=== PATIENT | female | born 1940 | race Caucasian/White ===

== ENCOUNTER 2016-08-31 12:43 | Emergency (ER) | payer MEDICARE, OTHER ==
[2016-08-31 13:05] LABS: BASOPHIL# 0.1 X 10^3uL (0.0-0.1); BASOPHILS 0.8 % (0.0-2.0); EOSINOPHILS 1.5 % (0.0-6.0); EOSINOPHILS# 0.2 X 10^3uL (0.0-0.4); HEMATOCRIT 41.5 % (36.0-48.0); HEMOGLOBIN 14.7 g/dL (12.0-16.0); LYMPHOCYTES# 3.6 X 10^3uL (0.8-3.8); MEAN CELL VOLUME 89.4 fL (80.0-100.0); MEAN CORPUS. HGB CONCENTRATION 35.5 g/dL (32.0-36.0); MEAN CORPUSCULAR HEMOGLOBIN 31.7 pg (29.0-35.0); MEAN PLATELET VOLUME 7.5 fL (7.4-10.4); MONOCYTES 7.8 % (2.0-10.0); MONOCYTES# 0.9 X 10^3uL (0.2-1.0); NEUTROPHILS 57.9 % (54.0-75.0); NEUTROPHILS# 6.4 X 10^3uL (2.6-6.7); PLATELET COUNT 383 X 10^3uL (130-440); RED BLOOD COUNT 4.65 X 10^6uL (4.20-6.10); RED CELL DISTRIBUTION WIDTH 11.9 % (11.5-14.5); WHITE BLOOD COUNT 11.2 X 10^3uL (3.9-10.7)
[2016-08-31] MEDS ORDERED: ONDANSETRON HCL 4 MG/2 ML VIAL ONE (13:12)
[2016-08-31 13:14] LABS: BLOOD UREA NITROGEN 19 mg/dL (7-17); CALCIUM 9.1 mg/dL (8.4-10.2); CHLORIDE 99 mmol/L (98-107); CREATININE 0.8 mg/dL (0.5-1.0); EST GLOMERULAR FILTRATION RATE > 60 mL/min; GLUCOSE 116 mg/dL (70-100); POTASSIUM 3.4 mmol/L (3.5-5.1); SODIUM 136 mmol/L (137-145)
[2016-08-31] MEDS ORDERED: BACITRACIN 1 APP/PKT PKT TOPICAL ONE (13:15)
[2016-08-31] MEDS ORDERED: SODIUM BICARB 4% 2.4 MEQ/5 ML VIAL ONE (13:15)
[2016-08-31] MEDS ORDERED: LIDOCAINE/EPI 2% 1:100,000 20 ML VIAL ONE (13:15)
[2016-08-31 13:26] LABS: TROPONIN I < 0.012 ng/mL (0.00-0.034)
--- NOTE | 2016-08-31 15:21 | ER PHYSICIAN DOCUMENTATION ---
Physician Documentation [facility] Name:Dariana Aguilar Age:75 yrs Sex:Female :1940 Arrival Date:08/31/2016 Time:12:43 BedTrauma-A Private MD: Shay Vogt Disposition: 08/31/16 13:25 Discharged to Home/Self Care. Impression: Syncope. - Condition is Good. - Discharge Instructions: SYNCOPE, Unk Cause, FACIAL LACERATION suture tape - LACERATION, Face (suture or tape). - Medical Reconciliation form form. - Follow up: Private Physician; When: 2 - 3 days; Reason: Recheck today's complaints, Continuance of care. Follow up: Emergency Department; When: As needed; Reason: Worsening of condition. - Problem is an acute exacerbation. - Symptoms have improved. HPI: 08/31 13:28 This 75 yrs old Female presents to ER via EMS with complaints of Syncope, sc Laceration To Head. 13:28 The patient has experienced syncope, collapsed. Onset: The symptom(s)/episode sc began/occurred just prior to arrival. Duration: This was a single episode. Context: the episode(s) was witnessed, by family, . Associated injury: Head/face: laceration. Associated signs and symptoms: The patient has no apparent associated signs or symptoms. Current symptoms: mild lethargy than cleared in a few minutes. The patient has experienced similar episodes in the past, multiple times, and the symptoms today are exactly the same. extensive workups, scans, eeg, cardiac for causes of syncope. Historical: - Allergies: No known drug Allergies; - Home Meds: 1. unknown BP med - PMHx: HYPERTENSION; Syncope; - PSHx: Tonsillectomy; Appendectomy; - Tetanus: < 10 years < 10 years. - Ebola Screening: : Patient negative for fever greater than or equal to 101.5 degrees Fahrenheit, and additional compatible Ebola Virus Disease symptoms. Patient denies exposure to infectious person. Patient denies travel to an Ebola-affected area in the 21 days before illness onset. . - Immunization history: Pneumococcal vaccine is up to date, Flu Vaccine unknown. - Social history: Smoking status: Patient states was never smoker of tobacco. ROS: 13:30 Constitutional: Negative for fever, chills, and weight loss. sc Eyes: Negative for injury, pain, redness, and discharge. ENT: Negative for injury, pain, and discharge. Neck: Negative for injury, pain, and swelling. Cardiovascular: Negative for chest pain, palpitations, and edema. Respiratory: Negative for shortness of breath, cough, wheezing, and pleuritic chest pain. Abdomen/GI: Negative for abdominal pain, nausea, vomiting, diarrhea, and constipation. Back: Negative for injury and pain. MS/Extremity: Negative for injury and deformity. 13:30 Skin: Negative for injury, rash, and discoloration. sc 13:30 Cardiovascular: Negative for chest pain, edema, orthopnea, palpitations, paroxysmal nocturnal dyspnea. 13:30 Neuro: Positive for syncope. Exam: Constitutional: This is a well developed, well nourished patient who is awake, alert, and in no acute distress. Eyes: Pupils equal round and reactive to light, extra-ocular motions intact. Lids and lashes normal. Conjunctiva and sclera are non-icteric and not injected. Cornea within normal limits. Periorbital areas with no swelling, redness, or edema. ENT: Nares patent. No nasal discharge, no septal abnormalities noted. Tympanic membranes are normal and external auditory canals are clear. Oropharynx with no redness, swelling, or masses, exudates, or evidence of obstruction, uvula midline. Mucous membranes moist. Neck: Trachea midline, no thyromegaly or masses palpated, and no cervical lymphadenopathy. Supple, full range of motion without nuchal rigidity, or vertebral point tenderness. No meningismus. Chest/axilla: Normal chest wall appearance and motion. Nontender with no deformity. No lesions are appreciated. Cardiovascular: Regular rate and rhythm with a normal S1 and S2. No gallops, murmurs, or rubs. Normal PMI, no JVD. No pulse deficits. Respiratory: Lungs have equal breath sounds bilaterally, clear to auscultation and percussion. No rales, rhonchi or wheezes noted. No increased work of breathing, no retractions or nasal flaring. Abdomen/GI: Soft, non-tender, with normal bowel sounds. No distension or tympany. No guarding or rebound. No evidence of tenderness throughout. Back: No spinal tenderness. No costovertebral tenderness. Full range of motion. Female : Normal external genitalia. 13:31 Skin: Warm, dry with normal turgor. Normal color with no rashes, no lesions, and no sc evidence of cellulitis. 13:31 Head/face: Noted is a laceration(s), that is superficial. Vital Signs: 12:45 BP 137 / 65; Pulse 68; Resp 16; Temp 97.7(O); Pulse Ox 87% on R/A; Weight 68.04 kg; lp Height 5 ft. 3 in. (160.02 cm); Pain 4/10; 14:45 BP 148 / 69; Pulse 67; Resp 16; Pulse Ox 98% on R/A; lp 14:45 BP 148 / 69; Pulse 67; Resp 16; Pulse Ox 98% on R/A; lp 12:45 Body Mass Index 26.57 (68.04 kg, 160.02 cm) lp Ada Coma Score: 12:45 Eye Response: spontaneous(4). Verbal Response: confused(4). Motor Response: obeys lp commands(6). Total: 14. Trauma Score (Adult): 12:45 Eye Response: spontaneous(1); Verbal Response: confused(1); Motor Response: obeys lp commands(2); Systolic BP: > 89 mm Hg(4); Respiratory Rate: 10 to 29 per min(4); Terrence Score: 14; Trauma Score: 12 12:45 Eye Response: spontaneous(1); Verbal Response: confused(1); Motor Response: obeys lp commands(2); Systolic BP: > 89 mm Hg(4); Respiratory Rate: 10 to 29 per min(4); Ada Score: 14; Trauma Score: 12 Visual Acuity: 12:45 Left Eye Normal, Brisk, React To Light, Reactive To Accomodation; Right Eye Normal, lp Brisk, React To Light, Reactive To Accomodation; Without Lenses; Laceration: 13:31 Wound Repair of 2cm ( 0.8in ) subcutaneous laceration to forehead. Linear shaped.. sc Distal neuro/vascular/tendon intact. Anesthesia: Wound infiltrated with 4 mls of 2% lidocaine w/ Epi. Wound prep: Moderate cleansing by earth moving technician by nurse. Skin closed with 3 4-0 Prolene using Interrupted sutures. Dressed with Bacitracin, 4x4's. Patient tolerated well. MDM: 12:49 Patient medically screened. ok 13:32 Differential Diagnosis: cardiac arrhythmia, drug effect, emotional response, idiopathic sc syncope, seizure, transient ischemic attack, vasovagal episode. Neurological re-evaluation: normal neurological exam including cranial nerves, orientation, mentation, motor and sensory exam, cerebellar testing, GCS normal, and normal gait. Data reviewed: vital signs, nurses notes, lab test result(s), EKG, and as a result, I will continue to observe the patient. ECG:. 13:34 Counseling: I had a detailed discussion with the patient and/or guardian regarding: the ok historical points, exam findings, and any diagnostic results supporting the discharge/admit diagnosis, lab results, the need for outpatient follow up, to return to the emergency department if symptoms worsen or persist or if there are any questions or concerns that arise at home. ED course: Patient and decline further admissions or studies at this time due to sonal yield and exposure to radiation.. 15:01 EKG attached 08/31 13:06 Order name: CBC AUTO DIF, MDIF/RMOR IF IND; Complete Time: 13:28 [facility] 08/31 13:28 Interpretation: Normal Except: WHITE BLOOD COUNT 11.2. ok 08/31 13:20 Order name: BASIC METABOLIC PANEL; Complete Time: 13:28 [facility] 08/31 13:28 Interpretation: Normal. ok 08/31 13:26 Order name: TROPONIN I; Complete Time: 13:28 [facility] 08/31 13:28 Interpretation: Normal. ok 08/31 12:48 Order name: Call For Old Ekg; Complete Time: 14:50 ok 08/31 12:48 Order name: 12-lead EKG; Complete Time: 13:10 ok 08/31 12:48 Order name: Continuous Cardiac Monitoring; Complete Time: 13:10 ok 08/31 12:48 Order name: I & O; Complete Time: 13:10 ok 08/31 12:48 Order name: NPO; Complete Time: 13:10 ok 08/31 12:48 Order name: Oxygen; Complete Time: 13:10 ok 08/31 12:48 Order name: Pulse Ox Continuous; Complete Time: 13:10 ok EC:32 Rate is 64 beats/min. Rhythm is irregular, Normal Sinus Rhythm with Left bundle branch sc block. QRS [place] is Normal. NC interval is normal. QRS interval is prolonged at 20 msec. QT interval is normal. No Q waves. T waves are Normal. No ST changes noted. Clinical impression: Normal ECG and Abnormal EKG without significant change. Interpreted by me. Reviewed by me. Dispensed Medications: : Drug: NS 0.9% 1000 ml; Route: IV; Rate: bolus; Site: right antecubital; lp 14:40 Follow up: Response: No adverse reaction; No change in condition; IV Status: Completed lp infusion; IV Intake: 1000ml 14:48 Follow up: Response: No adverse reaction; No change in condition lp Point of Care Testing: Blood Glucose: 13:06 Blood Glucose: 126 mg/dL; lp Ranges: Critical Glucose Levels:Adult <50 mg/dl or >400 mg/dl <40 mg/dl or >180 mg/dl Signatures: Mariya Garcia RN RN [facility] Ana Garvin RN RN Shay Napoles MD MD ok
--- NOTE | 2016-08-31 15:21 | ER NURSING DOCUMENTATION ---
Nurse's Notes Name:Dariana Aguilar Age:75 yrs Sex:Female :1940 Arrival Date:08/31/2016 Time:12:43 BedTrauma-A Private MD: Diagnosis:Syncope Presentation: 08/31 12:45 Care prior to arrival: Bleeding of injury controlled. Injury dressed. Mechanism of lp Injury: Fall Fell from standing position. Syncopal episode. Trauma event details: Injury occurred in the [facility]. Activity prior to arrival: Ambulatory @ scene. 12:57 Presenting complaint: Patient states: syncope with fall. Presenting complaint:. lp Transition of care: Home. 12:57 Acuity: ROYA 2 lp 12:57 Method Of Arrival: EMS: 410 lp Triage Assessment: 13:04 General: Appears in no apparent distress, Behavior is appropriate for age. Pain: lp Complains of pain in forehead. EENT: No deficits noted. Neuro: Level of Consciousness is awake, alert, confused, Oriented to person, place, Automation Technician are equal bilaterally Speech is normal, Facial symmetry appears normal, Reports dizziness, a syncopal episode. Historical: - Allergies: No known drug Allergies; - Home Meds: 1. unknown BP med - PMHx: HYPERTENSION; Syncope; - PSHx: Tonsillectomy; Appendectomy; - Tetanus: < 10 years < 10 years. - Ebola Screening: : Patient negative for fever greater than or equal to 101.5 degrees Fahrenheit, and additional compatible Ebola Virus Disease symptoms. Patient denies exposure to infectious person. Patient denies travel to an Ebola-affected area in the 21 days before illness onset. . - Immunization history: Pneumococcal vaccine is up to date, Flu Vaccine unknown. - Social history: Smoking status: Patient states was never smoker of tobacco. Screenin:45 Tuberculosis screening: No symptoms or risk factors identified. lp 13:06 Infectious Disease Risk None. Abuse screen: Denies threats or abuse. Denies injuries lp from another. Nutritional screening: No deficits noted. Primary Survey: 12:45 Airway: patent. Breathing/Chest: Respiratory pattern: regular, Respiratory effort: lp spontaneous, Breath sounds: clear, bilaterally. Circulation: Cardiac rhythm: sinus rhythm Heart tones present. Pulses: palpable right radial artery and left radial artery. Secondary Survey: 12:45 HEENT: Eyes: Edema noted left eyebrow, left lower eyelid and left eye. Ecchymosis noted lp left lower eyelid. Other Laceration above left eye. Gastrointestinal: No deficits noted. : No deficits noted. Musculoskeletal: No deficits noted. Injury Description: Fall. Assessment: 13:06 Cardiovascular: Rhythm is sinus rhythm. lp 14:30 General: Appears in no apparent distress, Behavior is appropriate for age. Pain: lp Complains of pain in forehead and left eye Pain currently is 4 out of 10 on a pain scale. Neuro: Level of Consciousness is awake, alert, Oriented to person, place, time, confused on event. Reports does not remember falling or the scene and ride to hospital. EENT: Reports pain in forehead. Cardiovascular: No deficits noted. Respiratory: Airway is patent Respiratory effort is even, unlabored. GI: No deficits noted. : No deficits noted. Derm: Skin has lesions on L forehead lesion with sutures in place. Musculoskeletal: No deficits noted. Vital Signs: 12:45 BP 137 / 65; Pulse 68; Resp 16; Temp 97.7(O); Pulse Ox 87% on R/A; Weight 68.04 kg; lp Height 5 ft. 3 in. (160.02 cm); Pain 4/10; 14:45 BP 148 / 69; Pulse 67; Resp 16; Pulse Ox 98% on R/A; lp 14:45 BP 148 / 69; Pulse 67; Resp 16; Pulse Ox 98% on R/A; lp 12:45 Body Mass Index 26.57 (68.04 kg, 160.02 cm) lp Visual Acuity: 12:45 Left Eye Normal, Brisk, React To Light, Reactive To Accomodation; Right Eye Normal, lp Brisk, React To Light, Reactive To Accomodation; Without Lenses; [place] Coma Score: 12:45 Eye Response: spontaneous(4). Verbal Response: confused(4). Motor Response: obeys lp commands(6). Total: 14. Trauma Score (Adult): 12:45 Eye Response: spontaneous(1); Verbal Response: confused(1); Motor Response: obeys lp commands(2); Systolic BP: > 89 mm Hg(4); Respiratory Rate: 10 to 29 per min(4); [place] Score: 14; Trauma Score: 12 12:45 Eye Response: spontaneous(1); Verbal Response: confused(1); Motor Response: obeys lp commands(2); Systolic BP: > 89 mm Hg(4); Respiratory Rate: 10 to 29 per min(4); Terrence Score: 14; Trauma Score: 12 ED Course: 12:20 Inserted peripheral IV: 20 gauge in right antecubital area. lp 12:45 Patient arrived in ED. fadi 12:47 Shay Napoles MD is Attending Physician. sc 12:57 Ana Garvin RN is Primary Nurse. lp 12:58 Triage completed. lp 13:[address] Napoles notified. lp 13:06 Valuables Remains with patient Placed in gown. Bed in low position. Call light in lp reach. Side rails up X2. 14:45 warm soapy water to cleanse wounds on face Peanut butter and crackers and juice. lp 14:49 Discontinued IV intact, bleeding controlled, pressure dressing applied. lp 15:01 EKG attached lp Administered Medications: 13:28 Drug: NS 0.9% 1000 ml; Route: IV; Rate: bolus; Site: right antecubital; lp 14:40 Follow up: Response: No adverse reaction; No change in condition; IV Status: Completed lp infusion; IV Intake: 1000ml 14:48 Follow up: Response: No adverse reaction; No change in condition lp Point of Care Testing: Blood Glucose: 13:06 Blood Glucose: 126 mg/dL; lp Ranges: Intake: 14:40 IV: 1000ml; Total: 1000ml. lp Output: 14:18 Urine: 420ml (Voided); Total: 420ml. lp Outcome: 13:25 Discharge ordered by . sc 14:46 Discharged to home ambulatory. lp 14:46 Condition: stable 14:46 Instructed on discharge instructions, follow up and referral plans. wound care, When to return to ER 15:21 Patient left the ED. sc1 Signatures: Mariya Garcia RN RN sc1 Ana Garvin RN RN Shay Napoles MD MD [facility], Reg Reg fadi
== END 2016-08-31 15:21 | disposition home or self-care (01) ==
LOC: ER 12:43
DX: R55 Syncope and collapse (principal); S01.81XA Laceration without foreign body of other part of head, initial encounter; W19.XXXA Unspecified fall, initial encounter; Y92.481 Parking lot as the place of occurrence of the external cause; Y93.01 Activity, walking, marching and hiking; I10 Essential (primary) hypertension; Z79.899 Other long term (current) drug therapy; Z99.89 Dependence on other enabling machines and devices; Z74.3 Need for continuous supervision
CPT/HCPCS: 12011; 80048; 84484; 85025; 96360; 99284; A0425; A0427; J2405